=== PATIENT | male | born 1960 | race Two or more races ===

== ENCOUNTER 2018-06-08 15:35 | Emergency (ER) | payer OTHER ==
--- NOTE | 2018-06-08 15:44 | PDOC ---
Rapid Medical Evaluation Chief Complaint: Pain Time Seen by Provider: 06/08/18 15:42 Medical Evaluation: 06/08/18 15:43 I have performed a brief in person evaluation of this patient. The patient presents with the CC of: abd pain HPI: Pt complains of diffuse abd pain x 2 weeks. Pt on Cipro and Flagyl. PE: Skin: Clear Lungs: Clear Heart: RRR Abd: diffuse tenderness MS: Moves all extremities without difficulty Neuro: Alert and oriented Psych: Appropriate affect I have ordered the following: abd protocol Pt will proceed to the main ED for further evaluation. Discharge Disposition - Diagnosis Abdominal pain Qualifiers: Abdominal location: generalized Qualified Code(s): R10.84 - Generalized abdominal pain - Referrals - Patient Instructions - Post Discharge Activity
[2018-06-08 15:46] VITALS: TEMP 98.6; BMI 30.2
[2018-06-08 16:13] LABS: BASO % 0.6 % (0-2.0); EOS % 0.7 % (0-4.5); HEMATOCRIT 46.5 % (35.4-49); HEMOGLOBIN 15.9 GM/dL (11.7-16.9); LYMPH % 31.6 % (8-40); MCH 30.6 pg (25.7-33.7); MCHC 34.2 g/dl (32.0-35.9); MEAN CELL VOLUME 89.4 fl (80-96); MEAN PLT VOLUME 8.5 fl (7.5-11.1); MONO % 8.4 % (3.8-10.2); NEUT % 58.7 % (42.8-82.8); PLATELET COUNT 223 K/MM3 (134-434); RDW 13.8 % (11.9-15.9); WHITE BLOOD COUNT 5.1 K/mm3 (4.0-10.0)
--- NOTE | 2018-06-08 16:39 | PDOC ---
History of Present Illness - General Chief Complaint: Pain Stated Complaint: SICK Time Seen by Provider: 06/08/18 15:42 - History of Present Illness Initial Comments: 58 year old male with PMH of borderline diabetes presenting with diarrhea and crampy abdominal pain for the past three weeks currently on Ciprofloxacin and Flagyl (presumed diverticulitis from CT scan on showing mesenteric stranding at descending and sigmoid colon) for the past week without improvement. Today he is also admitting to nausea but without vomiting and is still able to tolerate food and water but it is becoming more difficult. Dr. Dixon sent him into the ED today because of his lack of improvement. Denies any fevers, chest pain, blood in the diarrhea, or other symptoms. 06/08/18 17:03 Past History - Past Medical History Allergies/Adverse Reactions: Allergies Allergy/AdvReac Type Severity Reaction Status Date / Time sulfisoxazole Allergy Verified 06/08/18 15:46 [From Gantrisin] Home Medications: Ambulatory Orders Alprazolam 2 mg PO HS 06/08/18 Ciprofloxacin [Cipro (Restricted To Id)] 500 mg PO Q12H 06/08/18 Fenofibric Acid (Choline) [Trilipix] 135 mg PO HS 06/08/18 Metronidazole 500 mg PO Q8H 06/08/18 COPD: No Diabetes: Yes (borderline) Lung CA: No - Immunization History Immunization Up to Date: No - Suicide/Smoking/Psychosocial Hx Smoking History: Current some day smoker Have you smoked in the past 12 months: No Information on smoking cessation initiated: No Hx Alcohol Use: No Drug/Substance Use Hx: No Review of Systems - Review of Systems Constitutional: No: Chills, Diaphoresis, Fever HEENTM: No: Eye Pain, Blurred Vision, Tearing Respiratory: No: Cough, Orthopnea, Shortness of Breath Cardiac (ROS): No: Chest Pain, Edema, Irregular Heart Rate ABD/GI: Yes: Diarrhea, Nausea. No: Constipated, Poor Appetite, Poor Fluid Intake, Rectal Bleeding, Vomiting : No: Burning, Dysuria, Discharge Musculoskeletal: No: Back Pain, Gout, Joint Pain Integumentary: No: Lesions, Lumps Neurological: No: Headache, Numbness, Paresthesia Psychiatric: No: Anxiety, Depression Hematologic/Lymphatic: No: Anemia, Blood Clots, Easy Bleeding *Physical Exam - Vital Signs Last Vital Signs Temp Pulse Resp BP Pulse Ox 98.6 F 72 18 128/78 97 06/08/18 15:43 06/08/18 15:43 06/08/18 15:43 06/08/18 15:43 06/08/18 15:43 - Physical Exam General Appearance: Yes: Nourished, Appropriately Dressed. No: Apparent Distress HEENT: positive: EOMI, [place], Normal ENT Inspection, Normal Voice Neck: positive: Trachea midline, Normal Thyroid, Supple. negative: Tender, Rigid Respiratory/Chest: positive: Lungs Clear, Normal Breath Sounds. negative: Chest Tender, Respiratory Distress, Accessory Muscle Use Cardiovascular: positive: Regular Rhythm, Regular Rate Gastrointestinal/Abdominal: positive: Normal Bowel Sounds, Tender (right lower and right upper quadrant pain), Flat, Soft. negative: Increased Bowel Sounds Lymphatic: negative: Adenopathy, Tenderness Musculoskeletal: positive: Normal Inspection. negative: CVA Tenderness Extremity: positive: Normal Capillary Refill, Normal Inspection, Normal Range of Motion Integumentary: positive: Normal Color, Dry, Warm Neurologic: positive: Fully Oriented, Alert, Normal Mood/Affect, Normal Response , Motor Strength 5/5 Moderate Sedation - Procedure Monitoring Vital Signs: Procedure Monitoring Vital Signs Temperature 98.6 F 06/08/18 15:43 Pulse Rate 72 06/08/18 15:43 Respiratory Rate 18 06/08/18 15:43 Blood Pressure 128/78 06/08/18 15:43 O2 Sat by Pulse Oximetry (%) 97 06/08/18 15:43 ED Treatment Course - LABORATORY CBC & Chemistry Diagram: 06/08/18 15:56 06/08/18 16:59 - ADDITIONAL ORDERS Additional order review: Laboratory Results 06/08/18 15:56 Sodium Cancelled Potassium Cancelled Chloride Cancelled Carbon Dioxide Cancelled Anion Gap Cancelled BUN Cancelled Creatinine Cancelled Creat Clearance w eGFR Cancelled Random Glucose Cancelled Calcium Cancelled Total Bilirubin Cancelled AST Cancelled ALT Cancelled Alkaline Phosphatase Cancelled Total Protein Cancelled Albumin Cancelled Lipase Cancelled 06/08/18 15:56 RBC 5.20 MCV 89.4 MCHC 34.2 RDW 13.8 MPV 8.5 Neutrophils % 58.7 Lymphocytes % 31.6 Monocytes % 8.4 Eosinophils % 0.7 Basophils % 0.6 Medical Decision Making - Medical Decision Making 58 year old male presenting with abdominal pain, nausea, and vomiting in the setting of ciproflox and flagyl use for the past week for a presumed diverticulitis on CT 05/24/18. However, labs here and CT abdomen pelvis with IV con completely negative for pathology. Will touch base with Dr. Dixon to see if she would still like to admit the patient. These symptoms may actually be from the antibiotics themself as they likely treated any abdominal pathology days ago. Patient signed out to Dr. Cabrera in stable condition awaiting dispo in conjunction with Dr. Dixon. 06/08/18 19:33 *DC/Admit/Observation/Transfer Diagnosis at time of Disposition: Abdominal pain Qualifiers: Abdominal location: generalized Qualified Code(s): R10.84 - Generalized abdominal pain - Discharge Dispostion Disposition: HOME Condition at time of disposition: Good - Referrals Referrals: David Dietz DO [Staff Physician] - Abisai Cervantes MD [Primary Care Provider] - - Patient Instructions Printed Discharge Instructions: DI for Abdominal Pain-Adult, DI for Diarrhea and Traveler's Diarrhea -- Adult Additional Instructions: Please follow up with your primary care doctor tomorrow. Please return if you have any new, worsening or concerning symptoms, especially fever, vomiting and increasing pain. - Post Discharge Activity
--- NOTE | 2018-06-08 17:27 | PDOC ---
Attending Attestation - HPI HPI: 06/08/18 18:09 The patient is a 58 year old male with a significant past medical history of borderline diabetes and presumed diverticulitis from CT scan on showing mesenteric stranding at descending and sigmoid colon, presenting to the ED sent by Dr. Dixon for complaint of diarrhea and abdominal pain for the past three weeks despite currently taking Ciprofloxacin and Flagyl for the past week without improvement. He denies Cp, SOB, Palpitations, dizziness. He denies vomiting, constipation, hematochezia. - Physicial Exam PE: 06/08/18 18:12 GENERAL: The patient is in no acute distress. HEAD: Normal with no signs of trauma. EYES: PERRLA, EOMI, sclera anicteric, conjunctiva clear. ENT: Ears normal, nares patent, oropharynx clear without exudates. Moist mucous membranes. NECK: Normal range of motion, supple without lymphadenopathy, JVD, or masses. LUNGS: Breath sounds equal, clear to auscultation bilaterally. No wheezes, and no crackles. HEART:Regular rate and rhythm, normal S1 and S2 without murmur, rub or gallop. ABDOMEN: Soft, nontender, normoactive bowel sounds. No guarding, no rebound. No masses palpable. EXTREMITIES: Normal range of motion, no edema. No clubbing or cyanosis. No erythema, or tenderness. NEUROLOGICAL: Cranial nerves II through XII grossly intact. Normal speech. No focal neurological deficits. MUSCULOSKELETAL: Back non-tender to palpation, no CVA tenderness SKIN: Warm, Dry, normal turgor, no rashes or lesions noted. - Medical Decision Making 06/08/18 18:12 Documentation prepared by Kacey Sanches, acting as expert medical writer for Rhoda Valentine MD <Kacey Sanches - Last Filed: 06/08/18 18:09> - Resident Resident Name: Adal Mckoy - ED Attending Attestation I have performed the following: I have examined & evaluated the patient, The case was reviewed & discussed with the resident, I agree w/resident's findings & plan, Exceptions are as noted - Medical Decision Making 58 yo M h/o diverticulitis, prior surgical intervention 06/08/18 18:19 Laboratory Tests 06/08/18 06/08/18 06/08/18 15:56 16:59 18:03 WBC 5.1 Hgb 15.9 Hct 46.5 Plt Count 223 BUN 16 Creatinine 0.9 Lipase 396 H Urine Blood Negative Urine Nitrite Negative Ur Leukocyte Esterase Trace Pending CT Signed out to overnight team Dr Cabrera to follow up CT Dispo per CT <Rhoda Valentine - Last Filed: 06/09/18 15:58> *DC/Admit/Observation/Transfer <Kacey Sanches - Last Filed: 06/08/18 18:09> - Discharge Dispostion Decision to Admit order: Yes <Rhoda Valentine - Last Filed: 06/09/18 15:58> Diagnosis at time of Disposition: Abdominal pain Qualifiers: Abdominal location: generalized Qualified Code(s): R10.84 - Generalized abdominal pain - Discharge Dispostion Disposition: HOME Condition at time of disposition: Good - Referrals Referrals: David Dietz DO [Staff Physician] - Abisai Cervantes MD [Primary Care Provider] - - Patient Instructions Printed Discharge Instructions: DI for Abdominal Pain-Adult, DI for Diarrhea and Traveler's Diarrhea -- Adult Additional Instructions: Please follow up with your primary care doctor tomorrow. Please return if you have any new, worsening or concerning symptoms, especially fever, vomiting and increasing pain. - Post Discharge Activity
[2018-06-08 17:49] LABS: ALBUMIN 3.8 g/dl (3.4-5.0); ALK PHOS 102 U/L (45-117); AMYLASE 98 U/L (25-115); ANION GAP 7 MMOL/L (8-16); BILIRUBIN,TOTAL 0.4 mg/dL (0.2-1); BLOOD UREA NITROGEN 16 mg/dL (7-18); CHLORIDE 104 mmol/L (98-107); CO2 28 mmol/L (21-32); CREATININE 0.9 mg/dL (0.55-1.3); GLUCOSE,RANDOM 91 mg/dL (74-106); LIPASE 396 U/L (73-393); POTASSIUM 4.7 mmol/L (3.5-5.1); SGOT/AST 48 U/L (15-37); SGPT/ALT 140 U/L (13-61); SODIUM 139 mmol/L (136-145); TOT PROT 7.5 g/dl (6.4-8.2)
[2018-06-08 18:12] LABS: URINE APPEARANCE CLEAR; URINE BILIRUBIN NEGATIVE (<2.0 mg/dL); URINE COLOR STRAW; URINE GLUCOSE (UA) NEGATIVE (NEGATIVE); URINE KETONE NEGATIVE (NEGATIVE); URINE LEUK ESTERASE TRACE (NEGATIVE); URINE NITRITE NEGATIVE (NEGATIVE); URINE PROTEIN NEGATIVE (NEGATIVE); URINE UROBILINOGEN NEGATIVE mg/dL (0.2-1.0)
[2018-06-08 18:15] LABS: EPI CELLS RARE /HPF (FEW); URINE HYALINE CAST 2 /lpf
--- NOTE | 2018-06-08 20:08 | PDOC ---
*Physical Exam - Vital Signs Last Vital Signs Temp Pulse Resp BP Pulse Ox 98.6 F 72 18 128/78 97 06/08/18 15:43 06/08/18 15:43 06/08/18 15:43 06/08/18 15:43 06/08/18 15:43 ED Treatment Course - LABORATORY CBC & Chemistry Diagram: 06/08/18 15:56 06/08/18 16:59 - ADDITIONAL ORDERS Additional order review: Laboratory Results 06/08/18 06/08/18 06/08/18 18:03 16:59 15:56 Sodium 139 Cancelled Potassium 4.7 Cancelled Chloride 104 Cancelled Carbon Dioxide 28 Cancelled Anion Gap 7 L Cancelled BUN 16 Cancelled Creatinine 0.9 Cancelled Creat Clearance w eGFR > 60 Cancelled Random Glucose 91 Cancelled Calcium 9.0 Cancelled Total Bilirubin 0.4 Cancelled AST 48 H Cancelled ALT 140 H Cancelled Alkaline Phosphatase 102 Cancelled Total Protein 7.5 Cancelled Albumin 3.8 Cancelled Total Amylase 98 Lipase 396 H Cancelled Urine Color Straw Urine Appearance Clear Urine pH 6.0 Ur Specific [place] 1.009 L Urine Protein Negative Urine Glucose (UA) Negative Urine Ketones Negative Urine Blood Negative Urine Nitrite Negative Urine Bilirubin Negative Urine Urobilinogen Negative Ur Leukocyte Esterase Trace Urine WBC (Auto) 2 Urine RBC (Auto) None Ur Epithelial Cells Rare Hyaline Casts 2 06/08/18 15:56 RBC 5.20 MCV 89.4 MCHC 34.2 RDW 13.8 MPV 8.5 Neutrophils % 58.7 Lymphocytes % 31.6 Monocytes % 8.4 Eosinophils % 0.7 Basophils % 0.6 Medical Decision Making - Medical Decision Making 06/08/18 20:[address] Mckoy. Patient is 58M here today with diarrhea, history of recent treatment for diverticulitis. CT normal. Pending discussion with patient's primary care physician. D/W Dr Dixon, ok with sending patient home if pain is manageable and tolerating PO. Exam shows soft and nontender belly, tolerating po. Patient states that he is ok with going home. Instructed to follow up with PMD and GI. Given return precautions. *DC/Admit/Observation/Transfer Diagnosis at time of Disposition: Abdominal pain Qualifiers: Abdominal location: generalized Qualified Code(s): R10.84 - Generalized abdominal pain - Discharge Dispostion Disposition: HOME Condition at time of disposition: Good Decision to Admit order: No - Referrals Referrals: Abisai Cervantes MD [Primary Care Provider] - David Dietz DO [Staff Physician] - - Patient Instructions Printed Discharge Instructions: DI for Diarrhea and Traveler's Diarrhea -- Adult, DI for Abdominal Pain-Adult Additional Instructions: Please follow up with your primary care doctor tomorrow. Please return if you have any new, worsening or concerning symptoms, especially fever, vomiting and increasing pain. - Post Discharge Activity
[2018-06-08 20:27] VITALS: BP 126/72; PULSE 71
== END 2018-06-08 20:27 | disposition home or self-care (01) ==
LOC: JER 15:35
DX: R10.84 Generalized abdominal pain (principal); R73.03 Prediabetes; F17.210 Nicotine dependence, cigarettes, uncomplicated; Z88.2 Allergy status to sulfonamides
CPT/HCPCS: 36415; 74177-TC; 80053; 81003; 81015; 82150; 83690; 85025; 99283-25